=== PATIENT | female | born 1980 | race Caucasian/White ===

== ENCOUNTER 2020-08-23 17:19 | Emergency (ER) | payer BC, OTHER ==
[2020-08-23 17:54] VITALS: BP 128/77; PULSE 87; TEMP 97.8; BMI 21.4
[2020-08-23] MEDS ORDERED: CIPROFLOXACIN 250 MG TABLET (RESTRICTED TO ID) PO ONE ×2 (22:50→22:53)
== END 2020-08-23 22:58 | disposition home or self-care (01) ==
LOC: FER 17:19
DX: R30.0 Dysuria (principal)
CPT/HCPCS: 36415; 76856-TC; 81003; 81015; 84703; 87086; 87491; 87591; 99284-25